=== PATIENT | female | born 1980 | race Caucasian/White ===

== ENCOUNTER 2017-11-21 10:54 | Outpatient (CLI) | payer OTHER ==
[2013-07-30 19:07] VITALS: BP 109/72
== END 2017-11-21 10:55 ==
LOC: LABRHC 10:54
PROVIDERS: ATTEND Physician Assistant
DX: R30.0 Dysuria (principal)
CPT/HCPCS: 87086

== ENCOUNTER 2019-02-06 14:17 | Outpatient (CLI) | payer OTHER ==
[2013-07-30 19:07] VITALS: BP 109/72
[2019-02-06 14:43] LABS: BASOPHILS % 0.5 % (0.0-1.5); EOSINOPHILS % 1.9 % (0.0-6.8); MEAN CORPUSCULAR HEMOGLOBIN 32.6 pg (28.0-34.0); MONOCYTES % 8.3 % (0.0-11.0); NEUTROPHILS # 3.4 # k/uL (1.4-7.7)
[2019-02-07 09:08] LABS: TSH 1.52 mIU/l (0.465-4.685)
== END 2019-02-06 14:19 ==
LOC: LAB 14:17
PROVIDERS: ATTEND Family Medicine
DX: R94.6 Abnormal results of thyroid function studies (principal); R79.89 Other specified abnormal findings of blood chemistry
CPT/HCPCS: 36415; 82728; 84443; 84445; 84550; 85025